=== PATIENT | male | born 1980 | race Caucasian/White ===

== ENCOUNTER 2016-07-30 05:02 | Inpatient (IN) | payer MEDICAID, OTHER ==
[~2016-07-30] VITALS: Ht 152.4 cm; Wt 88.5 kg
[~2016-07-30 05:02] MED LIST: HYDR4TAB26 PO
[2016-07-30 05:05] VITALS: BP_SYST 121
--- NOTE | 2016-07-30 05:05 | NUR ---
Patient to ER bed 8 to gown for evaluation. Side rails up. Report given to James ATWOOD.
--- NOTE | 2016-07-30 05:06 | NUR ---
Pt states he has been having "pain on R upper side of abdomen since earlier this evening". Pt states pain is "sharp with pain scale 8/10", and radiates "to R side chest area". Pt states pain worsened during light palpation of R upper quadrant of abdomen. Pt states having nausea, denies vomiting. Pt states having loose stool earlier this evening. Pt abdomen soft, round, bowel sounds present in all 4 quadrants. Pt denies any other complaints.
[2016-07-30] MEDS ORDERED: NACL 0.9% 1,000 ML IV ONE (05:20)
--- NOTE | 2016-07-30 05:20 | NUR ---
Discussed patient with MD Patel. Verbal orders received and entered, read-back verified.
--- NOTE | 2016-07-30 05:24 | NUR ---
Dr. Patel at bedside for evaluation
[2016-07-30] MEDS ORDERED: HYDROmorphone 1 MG INJ. 1 MG/ML AMPUL IVP ONE ×2 (05:30→07:15)
[2016-07-30] MEDS ORDERED: ONDANSETRON HCL 4 MG/2 ML VIAL IVP ONE (05:30)
[2016-07-30 05:34] LABS: BILIRUBIN,URINE NEGATIVE (NEGATIVE); BLOOD, URINE NEGATIVE (NEGATIVE); CLARITY/URINE CLEAR (CLEAR); COLOR,URINE YELLOW (YELLOW); GLUCOSE,URINE NEGATIVE (NEGATIVE); KETONES,URINE NEGATIVE (NEGATIVE); LEUKOCYTE ESTERASE ,URINE NEGATIVE (NEGATIVE); NITRITE, URINE NEGATIVE (NEGATIVE); PROTEIN URINE NEGATIVE (NEGATIVE); UROBILINOGEN,URINE 0.2 (0.2-1.0)
[2016-07-30 06:00] LABS: BASOPHILS % (AUTO) 0.4 % (0.0-2.0); EOSINOPHILS # (AUTO) 0.1 K/uL (0.0-0.4); EOSINOPHILS % (AUTO) 0.6 % (0.0-4.0); HEMATOCRIT 38.6 % (36-54); HEMOGLOBIN 13.1 g/dL (14.0-18.0); LYMPHOCYTES % (AUTO) 22.3 % (20.5-51.5); MEAN CORPUSCULAR HEMOGLOBIN 31 pg (27-31); MEAN CORPUSCULAR HGB CONC 34 % (32-36); MEAN CORPUSCULAR VOLUME 91 fL (79.0-98.0); MONOCYTES # (AUTO) 0.7 K/uL (0.0-1.0); MONOCYTES % (AUTO) 7.5 % (1.7-9.3); NEUTROPHILS # (AUTO) 6.3 K/uL (1.8-7.7); NEUTROPHILS % (AUTO) 69.2 % (40.0-70.0); PLATELET COUNT (AUTO) 100 K/uL (130-430); RED BLOOD CELL COUNT(AUTO) 4.24 MIL/uL (4.2-6.2); RED CELL DISTRIBUTION WIDTH 13.3 % (9.0-15.0); WHITE BLOOD COUNT (AUTO) 9.1 K/uL (4.8-10.8)
--- NOTE | 2016-07-30 06:00 | NUR ---
Notified by laboratory of critical lab value. Potassium 2.9. ED MD Patel made aware of value.
[2016-07-30 06:08] LABS: CREATININE 0.54 mg/dL (0.55-1.30)
[2016-07-30 06:11] LABS: POTASSIUM 2.9 mmol/L (3.5-5.1)
[2016-07-30 06:14] LABS: INR 1.1 (0.80-1.20); PROTHROMBIN TIME 11.9 SECS (9.5-12.5)
[2016-07-30 06:23] LABS: ALBUMIN 3.5 g/dL (3.4-4.8); TOTAL BILIRUBIN 0.6 mg/dL (0.0-1.0); TOTAL PROTEIN, SERUM 7.6 g/dL (6.4-8.3)
--- NOTE | 2016-07-30 06:28 | NUR ---
IV insertion attempted seven times using aseptic technique each of the seven times, IV insertion unsuccessful each time. Pain medication to be given IM instead of IV per MD order.
[2016-07-30] MEDS ORDERED: POTASSIUM CHLORIDE 20 MEQ in NS 250 ML IV ONE (06:30)
[2016-07-30] MEDS ORDERED: HYDROmorphone 1 MG INJ. 1 MG/ML AMPUL IM ONE (06:30)
--- NOTE | 2016-07-30 06:31 | NUR ---
IM medication unable to scan in eMAR. Pt's name, , allergies verified with pt at bedside. Correct pt, route, time, and dose verified with eMAR at bedside.
[2016-07-30] MEDS ORDERED: DIPHENHYDRAMINE INJ 50 MG/ML VIAL ONE (06:42)
--- NOTE | 2016-07-30 06:46 | NUR ---
Pt stable, no signs of distress noted.
--- NOTE | 2016-07-30 06:55 | NUR ---
# 22 gauge angiocath placed to L forearm by RAI Escudero. Use of asceptic technique. Opsite placed over site. Blood return noted. Flushed with 10 cc of normal saline. No evidence of infiltration noted. Patient tolerated well.
--- NOTE | 2016-07-30 07:10 | NUR ---
Dr. Patel gave verbal order to give KCL 20 mEq in 100 mL over two hours.
--- NOTE | 2016-07-30 07:10 | NUR ---
IVP medication unable to scan in eMAR. Pt's name, , allergies verified with pt at bedside. Correct pt, route, time, and dose verified with eMAR at bedside.
[2016-07-30] MEDS ORDERED: DIPHENHYDRAMINE INJ 50 MG/ML VIAL IVP ONE (07:15)
--- NOTE | 2016-07-30 07:15 | NUR ---
Shift report given and care endorsed to RAI Horan.
[2016-07-30] MEDS ORDERED: KCL 20 mEq in 100 mL (PREMIX) 100 ML IV ONE (07:16)
--- NOTE | 2016-07-30 07:20 | NUR ---
Pt tolerating Medication well. Pt to be medicated for pain.
--- NOTE | 2016-07-30 07:22 | NUR ---
Patient transported to radiology via gurney, accompanied by rad staff.
--- NOTE | 2016-07-30 07:35 | NUR ---
Pt returned from rad tolerated well.
--- NOTE | 2016-07-30 07:50 | NUR ---
Pt tolerated medication well.Will continue to monitor.
[2016-07-30] MEDS ORDERED: INSU100V SQ (07:59)
[2016-07-30] MEDS ORDERED: HYDR4TAB26 PO (07:59)
--- NOTE | 2016-07-30 08:00 | NUR ---
Medication reconciliation completed with information provided by patient. Pt states that he takes a long acting insulin at night but can't remember the name of the medication. Any prior medication reconciliation on file was reviewed and corrected.
--- NOTE | 2016-07-30 08:02 | NUR ---
PT GIVEN URINAL 900ML CLEAR URINE OUTPUT.
--- NOTE | 2016-07-30 08:20 | NUR ---
ADMISSION NOTE Received patient from ER via gurney. Patient admitted with diagnosis of severe hypokalemia. Patient oriented to hospital routine, call light, toileting and safety-patient verbalized understanding.
--- NOTE | 2016-07-30 08:25 | NUR ---
Patient will be admitted to care of . Admitted to TELEMETRY unit. Will go to room 100B. Belongings list completed. Summary report printed. Report will be given at bedside.
[2016-07-30 08:30] VITALS: BP_SYST 129
[2016-07-30] MEDS ORDERED: POTASSIUM CHLORIDE 10 MEQ TAB.PRT.SR PO PRN (08:45)
[2016-07-30] MEDS ORDERED: ZOLPIDEM TARTRATE 5 MG TABLET PO PRN (08:45)
[2016-07-30] MEDS ORDERED: MAGNESIUM SULFATE 50 ML IV PRN (08:45)
[2016-07-30] MEDS ORDERED: DEXTROSE 50% JECT 50 ML DISP.SYRIN IVP PRN (08:45)
[2016-07-30] MEDS ORDERED: MORPHINE 2 MG/ML INJ. SYRINGE IVP PRN (08:45)
[2016-07-30] MEDS ORDERED: DOCUSATE SODIUM 100 MG CAPSULE PO PRN (08:45)
[2016-07-30] MEDS ORDERED: ACETAMINOPHEN 325 MG TABLET PO PRN (08:45)
[2016-07-30] MEDS ORDERED: LORazepam 2 MG/ML VIAL IVP PRN (08:45)
[2016-07-30] MEDS ORDERED: ONDANSETRON HCL 4 MG/2 ML VIAL IVP PRN (08:45)
--- NOTE | 2016-07-30 09:01 | NUR ---
GI CONSULT Spoke with Tania regarding request for consultation with Dr. Fair ([phone]) for reason: chronic pancreatitis.
--- NOTE | 2016-07-30 09:30 | NUR ---
ADMISSION NOTES, SEEN PT IN BED, C/O 09/29 PAIN. WILL MEDICATE. PT IA ALERT AND ORIENTED, NO SOB, NO DISTRESS. IV INFUSING WELL. INSTRUCTED ON THE USE OF CALL LIGHT AND BED CONTROLS, INSTRUCTED TO CALL FOR ASSISTANCE AND PAIN MEDS NEEDED. CALL LIGHT IN REACH, BED IN LOW POSITION. WILL CONT TO MONITOR.
[2016-07-30] MEDS: HYDROmorphone 2 MG/ML VIAL IVP PRN ×4 (09:34→22:16)
[2016-07-30] MEDS: INSULIN ASPART 100 UNITS/ML, 10 ML VIAL (NovoLOG) SUBCUT PRN ×2 (09:45→20:41)
--- NOTE | 2016-07-30 12:00 | NUR ---
Rounding notes, seen pt in bed, c/o 5 pain, pt told that his pain med is due at 1330, no sob, no distress. iv infusing well . call light in reach, bed in low position. reminded about the need for urine sample. collecting bottle at bedside. safety precaution in place. will cont to monitor.
--- NOTE | 2016-07-30 14:00 | NUR ---
Rounding notes, seen pt in bed, sleeping, c/o pain. will medicate. call light in reach, bed in low position. safety precaution in place. will cont to monitor.
[2016-07-30 14:11] VITALS: BP_SYST 135
[2016-07-30 15:46] LABS: BARBITURATE, URINE NEGATIVE (NEG <=200); BENZODIAZEPINE, URINE NEGATIVE (NEG <=150); CANNABINOID, URINE NEGATIVE (NEG <=50); COCAINE, URINE NEGATIVE (NEG <=150); METHAMPHETAMINES SCREEN,URINE NEGATIVE (NEG <=500); OPIATE, URINE POSITIVE (NEG <=100); PHENCYCLIDINE SCREEN,URINE NEGATIVE (NEG <=25); UR TRICYCLIC ANTIDEPRESSANTS NEGATIVE (NEG <=300); URINE AMPHETAMINE NEGATIVE (NEG <=500); URINE METHADONE NEGATIVE (NEG <=200); URINE OXYCODONE SCREEN NEGATIVE (NEG <=100); URINE PROPOXYPHENE SCREEN NEGATIVE (NEG <=300)
--- NOTE | 2016-07-30 16:00 | NUR ---
Rounding notes, seen pt in bed, sleeping, no pain. . call light in reach, bed in low position. safety precaution in place. will cont to monitor.
[2016-07-30 16:20] VITALS: BP_SYST 132
--- NOTE | 2016-07-30 18:00 | NUR ---
Rounding Notes; Pt in bed, eating dinner, c/o pain, level 8/10, will medicate patient. no sob, no distress. call light in reach, bed in low position. safety precaution in place. will cont to monitor.
--- NOTE | 2016-07-30 18:46 | NUR ---
CLOSING Addendum: 07/30/16 at 1854 by Dragan Pastor RN CLOSING NOTES, PT CALLED AND C/O ABOUT EXTREME ITCHING ON HIS IV SITE AFTER HE RECEIVED DILAUDID. PAGED DR GRADY AND NEW ORDERS GIVEN FOR BENADRYL. WILL MEDICATE PATIENT SOON IT IS CLEARED BY PHARMACY. WILL ENDORSE TO LUIS E RN
[2016-07-30] MEDS ORDERED: DIPHENHYDRAMINE HCL 25 MG CAPSULE PO PRN (19:00)
--- NOTE | 2016-07-30 19:45 | NUR ---
Initial Notes Patient alert and oriented, able to make needs known. Patient denies pain at this time. No SOB noted, on room air. Denies nausea/vomiting at this time. IV site patent, flushes well. Patient independent with bed mobility and ambulation. Patient was talking to RN about his benadryl order that it has not really helped with the itchiness he gets when he gets the pain medicine. Patient asked if staff could ask the doctor what his next plan was or if MD was going to visit him tonight. Informed patient, we will call MD and let him know what the doctor says. Goal of pain management, GI stability and safety this shift. Call light within reach. Will continue to monitor.
--- NOTE | 2016-07-30 20:15 | NUR ---
Notes Spoke to on the phone, inquired if MD was going to see patient tonight and any further plans. Per MD he will not be able to visit tonight. Relayed to MD patient was verbalizing possibly going home AMA. MD stated patient is ok to home AMA if he chooses. No new orders received.
[2016-07-30 20:33] VITALS: BP_SYST 117
--- NOTE | 2016-07-30 22:20 | NUR ---
Notes Patient recently medicated with pain medicine. No SOB noted. IV site patent, flushes well. Patient requested for broth and tea, was given. Call light within reach. Will continue to monitor.
--- NOTE | 2016-07-31 00:05 | NUR ---
Notes Patient sleeping at this time. No s/s of pain noted. No SOB noted. IV site patent, flushes well. Call light within reach. Will continue to monitor.
[2016-07-31 01:15] VITALS: BP_SYST 129
[2016-07-31] MEDS: HYDROmorphone 2 MG/ML VIAL IVP PRN (02:23)
--- NOTE | 2016-07-31 02:30 | NUR ---
Notes Patient recently medicated with pain medicine. No SOB noted. IV site patent, flushes well. Call light within reach. Will continue to monitor.
--- NOTE | 2016-07-31 03:45 | NUR ---
AMA Patient stated his was having a panic attack and that he needed to go home. Patient had already at the start of shift verbalized that he was thinking of going home tonight. Per patient, nothing was being done with him and that he did not know what the doctors plan was. MD Dr. Osuna was called and made aware of patients concern and plan and stated earlier this evening that patient is ok to go home against medical advice if he wishes. Patient decided to go home at this time. Charge nurse and dye house helper aware. IV site discontinued, catheter intact. All belongings sent with patient.
== END 2016-07-31 03:45 | disposition left against medical advice (07) | DRG 872 ==
LOC: SED 05:02 → STU 07:52
PROVIDERS: ADMIT General Practice; ATTEND General Practice
DX: A41.9 Sepsis, unspecified organism (principal); K86.1 Other chronic pancreatitis; F11.20 Opioid dependence, uncomplicated; E87.6 Hypokalemia; K30 Functional dyspepsia; E11.9 Type 2 diabetes mellitus without complications; I10 Essential (primary) hypertension; K74.60 Unspecified cirrhosis of liver; Z53.21 Procedure and treatment not carried out due to patient leaving prior to being seen by health care provider; G89.29 Other chronic pain; Z90.49 Acquired absence of other specified parts of digestive tract; Z88.6 Allergy status to analgesic agent; Z88.8 Allergy status to other drugs, medicaments and biological substances; Z79.899 Other long term (current) drug therapy
CPT/HCPCS: 36415; 71010; 80053; 80307; 81003; 82150-TC; 82962; 83690-TC; 85025; 85610-TC; 85730-TC; C1751; J1170; J1200; J1815; J2405; J3480; J7030; J7050; Q0163

== ENCOUNTER 2019-03-05 09:38 | Emergency (ER) | payer OTHER, MEDICAID ==
[~2019-03-05] VITALS: Ht 165.1 cm; Wt 81.6 kg
[2019-03-05 09:38] VITALS: BP_SYST 97
[~2019-03-05 09:38] MED LIST changes: +INSU100V SQ
--- NOTE | 2019-03-05 09:39 | NUR ---
Alana lundykim in ED - 03/05/19 at 0953 by BERTA Patient is awake, alert, and oriented x4. Patient is complaining of abdominal pain, nausea, vomiting, diarrhea, bloody stool x3 days.
--- NOTE | 2019-03-05 09:40 | NUR ---
BROUGHT BACK TO BED #8 AND TRIAGED, REPORT GIVEN TO LELIA
--- NOTE | 2019-03-05 09:41 | NUR ---
Patient is awake, alert, and oriented x4. Patient is complaining of abdominal pain, nausea, vomiting, diarrhea, bloody stool x3 days.
--- NOTE | 2019-03-05 09:41 | NUR ---
Alana crowder in [facility] - 03/05/19 at 0954 by BERTA Report given and care transferred to RAI Arias.
--- NOTE | 2019-03-05 09:55 | NUR ---
ER Dr. Johnson at bedside examining patient.
[2019-03-05] MEDS ORDERED: NACL 0.9% 1,000 ML IV ONE (10:01)
[2019-03-05] MEDS ORDERED: ONDANSETRON HCL 4 MG/2 ML VIAL IVP ONE (10:15)
[2019-03-05 11:14] LABS: BILIRUBIN,URINE NEGATIVE (NEGATIVE); BLOOD, URINE NEGATIVE (NEGATIVE); CLARITY/URINE CLEAR (CLEAR); COLOR,URINE YELLOW (YELLOW); GLUCOSE,URINE 3+ (NEGATIVE); KETONES,URINE 1+ (NEGATIVE); LEUKOCYTE ESTERASE ,URINE NEGATIVE (NEGATIVE); NITRITE, URINE NEGATIVE (NEGATIVE); PROTEIN URINE NEGATIVE (NEGATIVE); UROBILINOGEN,URINE 0.2 (0.2-1.0)
[2019-03-05 11:18] LABS: INR 1.1 (0.80-1.20); PROTHROMBIN TIME 10.7 SECS (9.5-12.5)
[2019-03-05 11:20] LABS: ANION GAP 9 (5-15); CALCIUM 8.6 mg/dL (8.4-11.0); CHLORIDE 98 mmol/L (98-107); CREATININE 0.54 mg/dL (0.55-1.30); POTASSIUM 4.2 mmol/L (3.5-5.1); SODIUM SERUM 128 mmol/L (136-145); UREA NITROGEN, BLOOD 11 mg/dL (8-21)
[2019-03-05 11:22] LABS: GFR AFRICAN AMERICAN 217 mL/min (>90)
[2019-03-05 11:25] LABS: ALANINE AMINOTRANSFERASE 45 U/L (12-78); ALBUMIN 3.2 g/dL (3.4-4.8); ASPARTATE AMINOTRANSFERASE 29 U/L (10-37); LIPASE 40 U/L (73-393); TOTAL BILIRUBIN 0.6 mg/dL (0.0-1.0)
[2019-03-05 11:26] LABS: GLUCOSE 575 mg/dL (70-99)
[2019-03-05 11:30] LABS: BACTERIA,URINE RARE /HPF (None Seen); RBC,URINE 0-3 /HPF (0-3); WBC,URINE 0-3 /HPF (0-3)
[2019-03-05] MEDS ORDERED: INSULIN REGULAR, HUMAN 10 UNITS/0.1 ML INJ SUBCUT ONE (11:30)
[2019-03-05 11:39] LABS: BASOPHILS % (AUTO) 0.6 % (0.0-2.0); EOSINOPHILS % (AUTO) 0.5 % (0.0-4.0); HEMATOCRIT 41.4 % (36-54); HEMOGLOBIN 13.6 g/dL (14.0-18.0); LYMPHOCYTES # (AUTO) 1.4 K/uL (1.0-5.5); LYMPHOCYTES % (AUTO) 31.5 % (20.5-51.5); MEAN CORPUSCULAR HEMOGLOBIN 31 pg (27-31); MEAN CORPUSCULAR HGB CONC 33 % (32-36); MEAN CORPUSCULAR VOLUME 93 fL (79.0-98.0); MONOCYTES # (AUTO) 0.4 K/uL (0.0-1.0); MONOCYTES % (AUTO) 9.1 % (1.7-9.3); NEUTROPHILS # (AUTO) 2.6 K/uL (1.8-7.7); NEUTROPHILS % (AUTO) 58.3 % (40.0-70.0); RED BLOOD CELL COUNT(AUTO) 4.43 MIL/uL (4.2-6.2); RED CELL DISTRIBUTION WIDTH 15.2 % (9.0-15.0); WHITE BLOOD COUNT (AUTO) 4.4 K/uL (4.8-10.8)
[2019-03-05] MEDS ORDERED: INSULIN GLARGINE 100 UNITS/ML 10 ML VIAL SUBCUT ONE (11:45)
[2019-03-05 11:50] LABS: PLATELET COUNT (AUTO) 95 K/uL (130-430)
--- NOTE | 2019-03-05 13:10 | NUR ---
Patient given written and verbal discharge instructions and verbalizes understanding. ER MD discussed with patient the results and treatment provided. Patient in stable condition. ID arm band removed. Rx of cipro given. Patient educated on pain management and to follow up with PMD. Pain Scale 0/10. Opportunity for questions provided and answered. Medication side effect fact sheet provided.
[2019-03-05 13:11] VITALS: BP_SYST 97
== END 2019-03-05 13:11 | disposition home or self-care (01) ==
LOC: SED 09:38
DX: K62.5 Hemorrhage of anus and rectum (principal); R10.9 Unspecified abdominal pain; E11.29 Type 2 diabetes mellitus with other diabetic kidney complication; D64.9 Anemia, unspecified; Z85.07 Personal history of malignant neoplasm of pancreas; Z79.899 Other long term (current) drug therapy; Z88.6 Allergy status to analgesic agent; Z88.8 Allergy status to other drugs, medicaments and biological substances
CPT/HCPCS: 36415; 80053; 81000-TC; 82962; 83690-TC; 84484; 85025; 85610-TC; 96372; 99284; J1815

== ENCOUNTER 2020-01-30 19:37 | Inpatient (IN) | payer OTHER, MEDICAID, SELFPAY ==
[~2020-01-30] VITALS: Ht 165.1 cm; Wt 60.8 kg
[~2020-01-30 19:37] MED LIST changes: +DEXAMETHASONE SOD PHOSPHATE 4 MG/ML VIAL ONE; +DIPHENHYDRAMINE INJ 50 MG/ML VIAL ONE; +GLYCOPYRROLATE 0.2 MG/ML VIAL ONE; +HYDROmorphone 2 MG/ML VIAL ONE; +NEOSTIGMINE METHYLSULFATE 1 MG/ML, 10 ML VIAL ONE; +NS 1000 ML IV.SOLN IV ONE; +NS IRRIG SOLN 1000 ML IR ONE; +ONDANSETRON HCL 4 MG/2 ML VIAL ONE; +PROPOFOL 200MG/ 20ML VIAL (DIPRIVAN) IV ONE; +ROCURONIUM BROMIDE 10 MG/ML (ZEMURON) ONE; +SEVOFLURANE 15 MIN GAS INH ONE; +SUCCINYLCHOLINE CHLORIDE 20 MG/ML(QUELICIN) ONE; +fentaNYL CITRATE/PF 100 MCG/2 ML AMP ONE
[2020-01-30 19:39] VITALS: BP_SYST 128
[2020-01-30] MEDS ORDERED: PIPERACILLIN/TAZO 3.375 GM in NS 50 ML IV ONE (20:30)
[2020-01-30] MEDS ORDERED: VANCOMYCIN HCL 1,000 MG in NS 250 ML IV ONE (20:30)
[2020-01-30] MEDS ORDERED: fentaNYL CITRATE/PF 100 MCG/2 ML AMP IVP ONE (20:30)
[2020-01-30] MEDS ORDERED: NACL 0.9% 1,000 ML IV ONE ×2 (20:30)
--- NOTE | 2020-01-30 21:00 | NUR ---
Patient to ER bed hallway 4 to gown for evaluation. Side rails up.
[2020-01-30 21:08] LABS: BASOPHILS % (AUTO) 0.3 % (0.0-2.0); EOSINOPHILS % (AUTO) 0.1 % (0.0-4.0); HEMATOCRIT 34.2 % (36-54); HEMOGLOBIN 11.5 g/dL (14.0-18.0); LYMPHOCYTES # (AUTO) 0.6 K/uL (1.0-5.5); LYMPHOCYTES % (AUTO) 4.3 % (20.5-51.5); MEAN CORPUSCULAR HEMOGLOBIN 30 pg (27-31); MEAN CORPUSCULAR HGB CONC 34 % (32-36); MEAN CORPUSCULAR VOLUME 89 fL (79.0-98.0); MONOCYTES # (AUTO) 0.9 K/uL (0.0-1.0); MONOCYTES % (AUTO) 6.3 % (1.7-9.3); NEUTROPHILS # (AUTO) 12.2 K/uL (1.8-7.7); PLATELET COUNT (AUTO) 137 K/uL (130-430); RED BLOOD CELL COUNT(AUTO) 3.84 MIL/uL (4.2-6.2); RED CELL DISTRIBUTION WIDTH 14.3 % (9.0-15.0); WHITE BLOOD COUNT (AUTO) 13.7 K/uL (4.8-10.8)
--- NOTE | 2020-01-30 21:10 | NUR ---
Dr. Mcneill bedside for pt eval
--- NOTE | 2020-01-30 21:15 | NUR ---
Pt BIBA to ED with history of diabetes, hernia surgery, pancreatic surgery, liver surgery, inactive dilaudid pump, pancreatitis, non-alcoholic fatty liver, and kidney stone, presents to the ED with gradual onset of abscess associated with pain on the right abdomen for the last 3 days. Pain is severe, localized to the right half of abdomen, worsening with palpation. Patient states possible infection secondary to his insulin shots. No fever, chills, cough, shortness of breath, swelling to the extremities, trauma, or other complaints.
--- NOTE | 2020-01-30 21:30 | NUR ---
Pt taken to Radiology in stable condition
[2020-01-30] MEDS ORDERED: VANCOMYCIN HCL 1000 MG/VIAL IV ONE (21:34)
[2020-01-30] MEDS ORDERED: PIPERACILLIN/TAZOBACTAM 3.375 GM/VIAL (ZOSYN) IV ONE (21:35)
[2020-01-30] MEDS ORDERED: CLINDAMYCIN 900 mg/50mL D5W 50 ML IV ONE (21:45)
--- NOTE | 2020-01-30 21:45 | NUR ---
Pt back from Radiology well tolerated
[2020-01-30 21:49] LABS: CREATININE 0.49 mg/dL (0.55-1.30); POTASSIUM 4.1 mmol/L (3.5-5.1)
[2020-01-30 21:56] LABS: ALBUMIN 2.4 g/dL (3.4-4.8); TOTAL BILIRUBIN 0.9 mg/dL (0.0-1.0)
--- NOTE | 2020-01-30 22:00 | NUR ---
IVF and Antibiotics well tolerated
[2020-01-30 22:22] LABS: INR 1.1 (0.80-1.20); PROTHROMBIN TIME 11.4 SECS (9.5-12.5)
--- NOTE | 2020-01-30 22:37 | NUR ---
Awaiting ADM to Surg Service, then after, to TELE
--- NOTE | 2020-01-30 22:50 | NUR ---
Dr. Maldonado at bedside and explained treatment plan and surgery plan.
[2020-01-30] MEDS ORDERED: ACETAMINOPHEN 325 MG TABLET PO PRN (23:00)
[2020-01-30] MEDS: PIPERACILLIN/TAZO 4.5GM/DEX-IS 100 ML IV SCH (23:00)
--- NOTE | 2020-01-30 23:01 | NUR ---
Blood for labwork drawn from [place]. Patient tolerated well.
--- NOTE | 2020-01-30 23:05 | NUR ---
Patient signed consent for surgery.
--- NOTE | 2020-01-31 | NUR ---
Pt taken to OR in gaurded condition, with Surgical + Anesthesia MDs having been at bedside obtained necessary consents
[2020-01-31] MEDS: HYDROmorphone 1 MG INJ. 1 MG/ML AMPUL IVP PRN ×6 (00:28→20:43)
[2020-01-31] MEDS ORDERED: HYDROmorphone 2 MG/ML VIAL IVP PRN (00:30)
[2020-01-31] MEDS ORDERED: ONDANSETRON HCL 4 MG/2 ML VIAL IVP PRN (00:30)
[2020-01-31] MEDS ORDERED: NACL 0.9% 1,000 ML IV SCH (00:30)
[2020-01-31] MEDS ORDERED: HYDROmorphone 1 MG INJ. 1 MG/ML AMPUL IVP PRN (00:30)
[2020-01-31] MEDS ORDERED: KETOROLAC TROMETHAMINE 30 MG VIAL IVP PRN ×3 (00:30)
[2020-01-31] MEDS ORDERED: HYDROmorphone 2 MG/ML VIAL ONE (01:02)
--- NOTE | 2020-01-31 01:10 | NUR ---
Opening note Received patient from OR. Received report from RAI Simon. Patient is drowsy, yet arousable. He is AOx4, he reports pain is 7/10 and I informed he was just medicated ten minutes ago. Surgical dressing is CDI with minimal pink tinged undertone to white dressing.
[2020-01-31 01:25] VITALS: BP_SYST 94
[2020-01-31] MEDS ORDERED: FLU VACC QS2020-21 (6 mos & up) 0.5 ML/SYRINGE I.M. PRN (01:30)
[2020-01-31] MEDS ORDERED: FLU VACC QS2020-21(65UP)/PF 0.7 ML/SYRINGE I.M. PRN (01:30)
[2020-01-31] MEDS ORDERED: PIPERACILLIN/TAZOBACTAM 4.5 GM/VIAL (ZOSYN) IV ONE (02:08)
[2020-01-31] MEDS ORDERED: KCL 20 mEq in NS 1000 mL 1,000 ML IV ONE (02:08)
[2020-01-31] MEDS: KCL 20 mEq in NS 1000 mL 1,000 ML IV SCH ×4 (02:33→22:52)
--- NOTE | 2020-01-31 02:35 | NUR ---
admit, assessment done, started IVF; no infiltration, tolerating
--- NOTE | 2020-01-31 03:42 | NUR ---
CONSULT REASON FOR CONSULT: NECROTIZING FASCITIS OF ABDOMINAL WALL PERSON I SPOKE WITH: CONSTANTINE CONSULTING PHYSICIAN: DR. ARBOLEDA VAULT SERVICE MECHANIC PHONE NUMBER: [phone] ORDERING PHYSICIAN: DR. SARAVIA
--- NOTE | 2020-01-31 04:42 | NUR ---
ambulate to restroom Patient was assisted with ambulation to restroom. He reports he felt he was going to have a bowel movement, though he didn't. He returned to bed. Bed alarm on and call light w/in reach.
[2020-01-31] MEDS: PIPERACILLIN/TAZO 4.5GM/DEX-IS 100 ML IV SCH ×3 (06:30→22:51)
[2020-01-31] MEDS: INSULIN REGULAR, HUMAN 100 UNITS/ML, 10 ML VIAL (humuLIN R) SUBCUT PRN ×4 (06:39→20:41)
[2020-01-31] MEDS ORDERED: VANCOMYCIN HCL 1,000 MG in NS 250 ML IV ONE (07:00)
--- NOTE | 2020-01-31 07:05 | NUR ---
closing note, dilaudid Patient reporting pain 7/10; dilaudid given for severe pain; Presently stable, no SOB or distress. Antibiotic infusing well, safety precautions maintained., will endorse care.
[2020-01-31 07:55] LABS: BASOPHILS % (AUTO) 0.5 % (0.0-2.0); HEMOGLOBIN 10.3 g/dL (14.0-18.0); LYMPHOCYTES # (AUTO) 0.6 K/uL (1.0-5.5); LYMPHOCYTES % (AUTO) 6.8 % (20.5-51.5); MEAN CORPUSCULAR HEMOGLOBIN 30 pg (27-31); MEAN CORPUSCULAR HGB CONC 33 % (32-36); MEAN CORPUSCULAR VOLUME 90 fL (79.0-98.0); MONOCYTES # (AUTO) 0.3 K/uL (0.0-1.0); MONOCYTES % (AUTO) 3.3 % (1.7-9.3); NEUTROPHILS # (AUTO) 7.9 K/uL (1.8-7.7); NEUTROPHILS % (AUTO) 89.4 % (40.0-70.0); PLATELET COUNT (AUTO) 102 K/uL (130-430); RED BLOOD CELL COUNT(AUTO) 3.45 MIL/uL (4.2-6.2); RED CELL DISTRIBUTION WIDTH 14.4 % (9.0-15.0); WHITE BLOOD COUNT (AUTO) 8.9 K/uL (4.8-10.8)
--- NOTE | 2020-01-31 07:55 | NUR ---
INITIAL NOTE RECEIVED PT IN BED, NO S/S OF DISTRESS OR SOB NOTED, PT HAS NO C/O PAIN AT THIS TIME, PT IN STABLE CONDITION, PT AAOX4, VERBAL, IV CATHETER PATENT, NO SIGNS OF INFECTION OR INFILTRATION NOTED, RUNNING IV FLUIDS ORDERED. BED AT LOWEST POSITION, CALL LIGHT WITHIN REACH, WILL CONTINUE TO MONITOR PT FOR ANY CHANGES, FALL AND SAFETY PRECAUTIONS IN PLACE. DRESSING ON ABD CLEAN AND DRY. PT REFUSED BED ALARM ON, ADVISED PT TO CALL FOR HELP WHEN GETTING UP. Addendum: 01/31/20 at 1200 by Rebeca Hernandez RN EDUCATED PT ON USE OF INCENTIVE SPIROMETER, PT TO USE 10 TIMES AN HOUR WHILE AWAKE, PT VERBALIZED UNDERSTANDING, PT AT 1500ML.
[2020-01-31 08:23] LABS: CALCIUM 8.1 mg/dL (8.4-11.0); CREATININE 0.44 mg/dL (0.55-1.30)
[2020-01-31 08:30] VITALS: BP_SYST 103
[2020-01-31] MEDS ORDERED: ENOXAPARIN SODIUM 40 MG/0.4 ML SYRINGE SUBCUT SCH (09:00)
[2020-01-31] MEDS: VANCOMYCIN HCL 1,000 MG in NS 250 ML IV SCH ×2 (09:49→20:36)
--- NOTE | 2020-01-31 09:52 | NUR ---
Nutrition Update Alireza Scale 17 noted. Pt admitted for necrotizing fascitis. Diet: full liquid BMI: 22.3 kg/m2 RD to follow per nutrition care standards.
--- NOTE | 2020-01-31 10:20 | NUR ---
ROUNDS PT IN BED, NO S/S OF DISTRESS OR SOB NOTED, PT HAS NO C/O PAIN AT THIS TIME, PT IN STABLE CONDITION, PT RESTING COMFORTABLY. WILL CONTINUE TO MONITOR PT FOR ANY CHANGES.
[2020-01-31 12:18] VITALS: BP_SYST 130
--- NOTE | 2020-01-31 14:35 | NUR ---
WOUND EVALUATION: Wound Consult received from Dr. Martinez. Thank you, Dr. Martinez, for the consult. Patient received in a [place] Bed with a mattress, awake, alert, and oriented. Patient is unable to turn independently. Alireza Score is a 17. Past Medical History: Diabetes Mellitus. Patient is status post Incision and Drainage of the abdominal wall abscess with sharp excisional debridement of the necrotizing fasciitis of the abdominal wall in the right upper quadrant on 01/31/[address] Maldonado. Admitted for abdominal wall abscess with infection for a few days. Recent Labs: WBC 8.9 (13.7 on 01/29), RBC 3.45, hemoglobin 10.3, hematocrit 31.0, sodium 131, BUN 10, creatinine 0.44, GFR 226, glucose 327, POC glucose Kos 336, albumin 2.4. Microbiology: Abdominal abscess culture results in progress. Intrinsic factors that delay wound healing: Diabetes Mellitus. Extrinsic factors that delay wound healing: Decreased mobility. Wound Assessment: 1. Central/Right Abdomen: Abscess with infection, present on admission. Site is status post I&D and debridement of abscess and necrotizing fasciitis by Dr. Maldonado on 01/31/2020. Wound bed has 100% dark pink tissue. No odor, moderate dark red sanguineous drainage (not emerald blood) - pressure applied to dressing for five minutes. Undermining present from 9-3 o'clock (0.5 cm at 9 o'clock; 2.0 cm at 12 o'clock; 1.2 cm at 3 o'clock) wound measures 5.5 cm x 9.5 cm x 2.4 cm. Dilaudid infusion pump visible in the abdominal wall (placed in a prior surgery). Recommend follow orders by Dr. Maldonado: Soak wound packing gauze with normal saline. Remove packing from the wound. Irrigate abdominal wall of wound with normal saline. Pack the wound with moist Kerlix gauze. Cover with dry gauze. Cover with ABD pad. Secured with paper tape. Perform site care twice daily, and as needed for dressing soiling or dislodgment. If wound site has continued drainage, apply more gauze, apply pressure to dressing for 10 minutes, then apply more tape and inform surgeon. Also recommend: Encourage and assist patient as needed with repositioning every 2 hours with pillow support and off-load pressure areas with pillows for pressure re-distribution. Offload, elevate and float bilateral heels with pillows. Perform skin care and monitor skin integrity Q shift. Patient observed moving around large nearly full backpack from bed to table. Encouraged patient to ask for help and avoid moving backpack by himself secondary to protect abdominal wound.
[2020-01-31 16:15] VITALS: BP_SYST 95
--- NOTE | 2020-01-31 18:32 | NUR ---
CLOSING NOTE PT IN BED, NO S/S OF DISTRESS OR SOB NOTED, PT HAS NO C/O PAIN AT THIS TIME, PT IN STABLE CONDITION, PT AAOX4, VERBAL, IV CATHETER PATENT, NO SIGNS OF INFECTION OR INFILTRATION NOTED, RUNNING IV FLUIDS ORDERED. BED AT LOWEST POSITION, CALL LIGHT WITHIN REACH, WILL ENDORSE CARE OF PT TO INCOMING NURSE, FALL AND SAFETY PRECAUTIONS IN PLACE. DRESSING ON ABD CLEAN AND DRY. PT REFUSED BED ALARM ON, ADVISED PT TO CALL FOR HELP WHEN GETTING UP.
[2020-01-31 20:40] VITALS: BP_SYST 97
[2020-02-01] VITALS (7 sets, daily range): BP systolic 94–111
[2020-02-01] MEDS: HYDROmorphone 1 MG INJ. 1 MG/ML AMPUL IVP PRN ×6 (00:42→21:53)
[2020-02-01] MEDS: PIPERACILLIN/TAZO 4.5GM/DEX-IS 100 ML IV SCH ×3 (06:06→21:54)
[2020-02-01] MEDS: INSULIN REGULAR, HUMAN 100 UNITS/ML, 10 ML VIAL (humuLIN R) SUBCUT PRN ×4 (06:11→21:56)
--- NOTE | 2020-02-01 07:45 | NUR ---
OPENING NOTES PT AWAKE AND ALERT. NONLABORED BREATHING NOTED ON ROOM AIR. NO ACUTE DISTRESS NOTED. ALL NEEDS MET. CALL LIGHT IN REACH. IV LINE INTACT AND PATENT, NO SIGNS OF INFILTRATION NOTE, FLUIDS RUNNING ORDERED. NO ACUTE DISTRESS NOTED. ALL NEEDS MET. CALL LIGHT IN REACH. FALL AND ASPIRATION PRECAUTIONS IN PLACE. CONTINUE TO MONITOR.
[2020-02-01] MEDS: VANCOMYCIN HCL 1,000 MG in NS 250 ML IV SCH ×2 (08:49→20:17)
--- NOTE | 2020-02-01 09:05 | NUR ---
PT C/O PAIN, CHECKED BP, ADMINISTERED PRN PAIN MEDS ORDERED PER MD, EDUCATION GIVEN, PT VERBALIZED UNDERSTANDING. ADMINISTERED IV ABX ORDERED, TOLERATED WELL. CONTINUE TO MONITOR.
--- NOTE | 2020-02-01 11:59 | NUR ---
accucheck done, administered insulin coverage as ordered per sliding scale, education given, tolerated well. continue to monitor.
--- NOTE | 2020-02-01 13:17 | NUR ---
pt c/o pain, checked bp, administered prn pain meds as ordered per md, education given, tolerated well. continue to monitor.
[2020-02-01] MEDS: KCL 20 mEq in NS 1000 mL 1,000 ML IV SCH (13:51)
--- NOTE | 2020-02-01 13:53 | NUR ---
iv abx and fluids administered as ordered per md, education given, tolerated well. continue to monitor.
--- NOTE | 2020-02-01 17:15 | NUR ---
Dietitian Recommendations * Recommend CCHO diet w/ Yan BID (wound healing supplement provides 180 kcal/day, 5 gm protein/day) SUSAN BERG Please refer to Nutrition Assessment for details. Addendum: 02/01/20 at [address]16 [address] Amended: Links added. Addendum: 02/01/20 at 1719 by Maria G V[address] RD CORRECTION: Dietitian Recommendations * Recommend CCHO, soft (low fiber/bland) diet w/ Yan BID (wound healing supplement provides 180 kcal/day, 5 gm protein/day) SUSAN BERG
--- NOTE | 2020-02-01 17:40 | NUR ---
IV RE-INSERTION: Complaining of pain to IV site. Restarted on RIGHT UPPER ARM 22G BY RAI LOVE. Will observe for any signs of infiltration.
--- NOTE | 2020-02-01 17:43 | NUR ---
pt c/o pain, checked bp, bp wnl limits, administered bp meds as ordered per md, education given, tolerated well. accucheck done, insulin coverage administered per sliding scale. continue to monitor.
--- NOTE | 2020-02-01 19:00 | NUR ---
CLOSING NOTES PT RESTING IN BED, CHEST RISE AND FALL NOTED. NONLABORED BREATHING NOTED ON ROOM AIR. NO ACUTE DISTRESS NOTED. ALL NEEDS MET. CALL LIGHT IN REACH. IV LINE INTACT AND PATENT, NO SIGNS OF INFILTRATION NOTE, FLUIDS RUNNING ORDERED. NO ACUTE DISTRESS NOTED. ALL NEEDS MET. CALL LIGHT IN REACH. FALL AND ASPIRATION PRECAUTIONS IN PLACE. ENDORSED CARE TO RAI CABRERA
--- NOTE | 2020-02-01 19:20 | NUR ---
initial note: initial note: pt is on bed, alert,awake, oriented x 4. complain of pain, not distress, stable vital sign. ivf infusing well. pt has abdominal binder to hold dressing. explain to pt that his pain medication not due yet. pt agree and willing to wait. explain plan of care pt verbalized understanding. call light in reach, side rails up. low bed position. will follow-up.
--- NOTE | 2020-02-01 22:00 | NUR ---
pt is awake, alert. ambulating to the [address], steady gait. no pain, not distress, stable.
--- NOTE | 2020-02-02 | NUR ---
pt is sitting at the edge of bed, stable vital sign, no complain of kelli at this time. no sob, needs attended. call light in reach.
[2020-02-02 00:28] VITALS: BP_SYST 85
--- NOTE | 2020-02-02 02:26 | NUR ---
WOUND CARE NOTE WOUND CARE IS PROVIDED AT THIS TIME, HYGIENE CARE ALSO PROVIDED. PATIENT TOLERATED WELL. CALL LIGHT PLACED WITHIN REACH. BED IS LOCKED, ALARMED, AND AT THE LOWEST
[2020-02-02] MEDS: HYDROmorphone 1 MG INJ. 1 MG/ML AMPUL IVP PRN ×5 (02:32→21:05)
--- NOTE | 2020-02-02 03:58 | NUR ---
NOTE PATIENT IS RESTING IN BED, STABLE, NO PAIN, NO SIGNS OF RESPIRATORY DISTRESS. CALL LIGHT IS WITHIN REACH. BED IS LOCKED, ALARMED, AND AT THE LOWEST LEVEL.
[2020-02-02] MEDS: KCL 20 mEq in NS 1000 mL 1,000 ML IV SCH ×2 (04:30→15:00)
--- NOTE | 2020-02-02 06:00 | NUR ---
NOTE PATIENT IS RESTING IN BED, STABLE, NO SIGNS OF RESPIRATORY DISTRESS. NO PAIN, CALL LIGHT IS WITHIN REACH. BED IS LOCKED, ALARMED, AND AT THE LOWEST LEVEL.
[2020-02-02] MEDS: PIPERACILLIN/TAZO 4.5GM/DEX-IS 100 ML IV SCH ×3 (06:41→21:02)
[2020-02-02] MEDS: INSULIN REGULAR, HUMAN 100 UNITS/ML, 10 ML VIAL (humuLIN R) SUBCUT PRN ×4 (06:46→21:01)
--- NOTE | 2020-02-02 07:19 | NUR ---
closing: pt is resting in bed, stable, no pain, ivf infusing well. needs attended the whole shift, sbar report given to am rn.
--- NOTE | 2020-02-02 07:30 | NUR ---
OPENING NOTES PT AWAKE AND ALERT. NONLABORED BREATHING NOTED ON ROOM AIR. NO ACUTE DISTRESS NOTED. ALL NEEDS MET. CALL LIGHT IN REACH. IV LINE INTACT AND PATENT, NO SIGNS OF INFILTRATION NOTED. DRESSING C/D/I. FALL AND ASPIRATION PRECAUTIONS IN PLACE. CONTINUE TO MONITOR.
[2020-02-02 08:00] VITALS: BP_SYST 111
[2020-02-02 08:53] LABS: CALCIUM 8.2 mg/dL (8.4-11.0); CREATININE 0.41 mg/dL (0.55-1.30); POTASSIUM 4.1 mmol/L (3.5-5.1)
--- NOTE | 2020-02-02 09:00 | NUR ---
SPOKE TO DR. CUMMINGS REGARDING PT'S GENERALIZED EDEMA. MD VERBALIZED UNDERSTANDING, STATED WILL SEE PATIENT. NO NEW ORDERS RECEIVED.
[2020-02-02 09:08] LABS: BASOPHILS % (AUTO) 0.7 % (0.0-2.0); EOSINOPHILS # (AUTO) 0.1 K/uL (0.0-0.4); EOSINOPHILS % (AUTO) 1.5 % (0.0-4.0); HEMATOCRIT 30.6 % (36-54); HEMOGLOBIN 10.2 g/dL (14.0-18.0); LYMPHOCYTES # (AUTO) 1.5 K/uL (1.0-5.5); LYMPHOCYTES % (AUTO) 34.6 % (20.5-51.5); MEAN CORPUSCULAR HEMOGLOBIN 30 pg (27-31); MEAN CORPUSCULAR HGB CONC 33 % (32-36); MEAN CORPUSCULAR VOLUME 91 fL (79.0-98.0); MONOCYTES # (AUTO) 0.3 K/uL (0.0-1.0); MONOCYTES % (AUTO) 7.8 % (1.7-9.3); NEUTROPHILS # (AUTO) 2.4 K/uL (1.8-7.7); NEUTROPHILS % (AUTO) 55.4 % (40.0-70.0); PLATELET COUNT (AUTO) 101 K/uL (130-430); RED BLOOD CELL COUNT(AUTO) 3.38 MIL/uL (4.2-6.2); RED CELL DISTRIBUTION WIDTH 14.7 % (9.0-15.0); WHITE BLOOD COUNT (AUTO) 4.4 K/uL (4.8-10.8)
--- NOTE | 2020-02-02 09:15 | NUR ---
PT REFUSED FLUIDS STATED BECAUSE OF THE EDEMA, EDUCATION GIVEN, PT CONTINUE TO REFUSE. WILL MAKE MD AWARE.
[2020-02-02] MEDS: VANCOMYCIN HCL 1,000 MG in NS 250 ML IV SCH ×2 (09:52→17:28)
[2020-02-02 11:09] VITALS: BP_SYST 138
--- NOTE | 2020-02-02 11:12 | NUR ---
pt c/o pain, checked bp, administered prn pain meds as ordered per md, education given, tolerated well. accucheck done, insulin coverage administered per sliding scale. continue to monitor.
--- NOTE | 2020-02-02 14:12 | NUR ---
iv abx administered as ordered per md, education given, tolerated well. continue to monitor.
[2020-02-02 15:18] VITALS: BP_SYST 105
--- NOTE | 2020-02-02 15:18 | NUR ---
pt c/o pain and preparing to do wound care. administered prn pain meds as ordered per md, education given, tolerated well.
--- NOTE | 2020-02-02 15:47 | NUR ---
wound care done, tolerated well. continue to monitor.
--- NOTE | 2020-02-02 17:36 | NUR ---
iv abx administered as ordered per md, education given, tolerated well. accucheck done, insulin coverage administered per sliding scale, tolerated well. continue to monitor.
--- NOTE | 2020-02-02 18:45 | NUR ---
SEEN BY DR. SARAVIA AT BEDSIDE, RECEIVED ORDERS TO STOP FLUIDS, VERIFIED, AND CARRIED OUT.
--- NOTE | 2020-02-02 18:47 | NUR ---
CLOSING NOTES PT AWAKE AND ALERT. SITTING UP IN BED. NONLABORED BREATHING NOTED ON ROOM AIR, TOLERATING WELL. NO ACUTE DISTRESS NOTED. ALL NEEDS MET. CALL LIGHT IN REACH. IV LINE INTACT AND PATENT, NO SIGNS OF INFILTRATION NOTED. DRESSING C/D/I. WILL ENDORSE TO NOC NURSE.
[2020-02-02 20:50] VITALS: BP_SYST 123
--- NOTE | 2020-02-02 21:05 | NUR ---
ATB/PAIN MGT PATIENT DUE ANTIBIOTIC INFUSED. IV LINE INTACT AND PATENT. MEDICATED WITH DILAUDID FOR C/O UPPER MIDDLE ABDOMINAL PAIN. VITAL SIGNS STABLE. HS SNACK PROVIDED.
[2020-02-03] MEDS: VANCOMYCIN HCL 1,000 MG in NS 250 ML IV SCH ×3 (00:46→18:02)
[2020-02-03 00:51] VITALS: BP_SYST 101
[2020-02-03] MEDS: HYDROmorphone 1 MG INJ. 1 MG/ML AMPUL IVP PRN ×5 (00:58→20:32)
--- NOTE | 2020-02-03 00:58 | NUR ---
PAIN MGT/ATB PATIENT MEDICATED WITH DILAUDID FOR C/O UPPER MIDDLE ABDOMINAL PAIN. VITAL SIGNS STABLE. DUE VANCOMYCIN INFUSING.
--- NOTE | 2020-02-03 03:00 | NUR ---
ROUNDS PATIENT RESTING IN BED. NO DISTRESS NOTED.
[2020-02-03] MEDS: PIPERACILLIN/TAZO 4.5GM/DEX-IS 100 ML IV SCH (05:34)
--- NOTE | 2020-02-03 05:37 | NUR ---
ROUNDS PATIENT RESTING IN BED. BREATHING UNLABORED ON ROOM AIR. DUE ANTIBIOTIC INFUSING.
[2020-02-03] MEDS: INSULIN REGULAR, HUMAN 100 UNITS/ML, 10 ML VIAL (humuLIN R) SUBCUT PRN ×4 (06:21→20:24)
--- NOTE | 2020-02-03 06:25 | NUR ---
PAIN MGT PATIENT PREMEDICATED WITH DILAUDID PRIOR TO WOUND CARE.
--- NOTE | 2020-02-03 06:30 | NUR ---
WOUND CARE WOUND CARE DONE ON PATIENT ABDOMINAL WOUND. WET TO DRY DRESSING APPLIED ORDERED.
--- NOTE | 2020-02-03 08:00 | NUR ---
ASSUMPTION OF CARE: RECEIVED PT ASLEEP, EASILY AROUSED VIA VERBAL STIMULI, DX:PAIN, R/T S/P ABDOMEN ABSCESS DEBRIDEMENT, AFEBRILE, VSS, NO S/S OF DISTRESS, IV SITE INTACT, PATENT, NO REDNESS OR SWELLING, NO C/O PAIN AT THIS TIME, REORIENTED TO UNIT, CALL LIGHT PLACED WITHIN REACH, WILL CONT' TO MONITOR AND ASSESS.
[2020-02-03 08:02] VITALS: BP_SYST 101
--- NOTE | 2020-02-03 09:00 | NUR ---
BILLING SERVICES MANAGER: MORNING MEDS GIVEN, PER ORDERED BY Joesph, TOLERATED WELL, WILL CONT' TO MONITOR AND ASSESS.
[2020-02-03] MEDS: metroNIDAZOLE 500 mg/NS 100 ML IV SCH ×2 (09:54→21:29)
[2020-02-03 11:47] VITALS: BP_SYST 145
--- NOTE | 2020-02-03 12:00 | NUR ---
GLUCOSE MONITORING: BLOOD SUGAR [id number], COVERED WITH 4 UNITS REGULAR INSULIN SQ, TOLERATED WELL, LUNCH MEAL GIVEN AT THIS TIME, WILL CONT' TO MONITOR AND ASSESS.
--- NOTE | 2020-02-03 14:30 | NUR ---
WOUND CARE: DRESSING CHANGE COMPLETED, CLEANSED AREA WITH NS, PAT DRY, APPLIED WET TO DRY DRSG, COVERED WITH ABD DRSG, HELD WITH PAPER TAPE, TOLERATED WELL, WILL CONT' TO MONITOR AND ASSESS.
--- NOTE | 2020-02-03 14:35 | NUR ---
Discharge Planning: DCP faxed pt referral to [facility] (f [phone] p [phone]) DCP to follow up. Addendum: 02/03/20 at 1635 by María Elena DOUGHERTY DCP followed up on pt referral to [facility] (f [phone] p [phone]) pt accepted
--- NOTE | 2020-02-03 15:36 | NUR ---
DC PLANNING Spoke with pt @ bedside & aware & agreeable with plan for dc home with home health. Has no preference for home health. Verified address & ph #s correct on face sheet. States has had abd wound for a long time & he & his sig other Lovella have both done wound care on it in past & are willing to learn wound care. Both are teachable & willing.
--- NOTE | 2020-02-03 17:30 | NUR ---
GLUCOSE MONITORING: BLOOD SUGAR RQGPM=346, COVERED WITH 4 UNITS REGULAR INSULIN SQ, TOLERATED WELL, WILL CONT' TO MONITOR AND ASSESS.
[2020-02-03 17:56] VITALS: BP_SYST 111
--- NOTE | 2020-02-03 18:53 | NUR ---
CLOSING NOTES: PT RESTING IN POSITION OF COMFORT, NEEDS MET, CALL LIGHT WITHIN REACH, NO SIGNIFICANT CHANGES NOTED AT THIS TIME, WILL ENDORSE TO SWITCHBOARD OPERATOR ASSISTANT NURSE.
--- NOTE | 2020-02-03 19:30 | NUR ---
OPENING NOTES RECEIVED REPORT FROM DAY SHIFT RN. PT RESTING IN BED, ALERT & ORIENTED X4. BREATHING EVEN AND UNLABORED TO ROOM AIR. NO SIGNS OF RESPIRATORY DISTRESS NOTED. IV ON RIGHT AC 22G INTACT, SL. NO SIGNS OF INFILTRATION NOTED. CALL LIGHT WITHIN REACH. BED LOCKED IN LOWEST LEVEL. SAFETY PRECAUTIONS IN PLACE. WILL CONTINUE TO MONITOR.
[2020-02-03 20:00] VITALS: BP_SYST 117
--- NOTE | 2020-02-03 20:32 | NUR ---
PAIN/DILAUDID PT REPORTING ABDOMINAL INCISION PAIN. ADMINISTERED DILAUDID ORDERED PRN. DISCUSSED MEDICATION ACTION AND POTENTIAL SIDE EFFECTS. PT VERBALIZED UNDERSTANDING. CALL LIGHT WITHIN REACH. SIDE RAILS UP X3. BED LOCKED IN LOWEST LEVEL. SAFETY PRECAUTIONS MAINTAINED. WILL CONTINUE TO MONITOR.
--- NOTE | 2020-02-03 21:29 | NUR ---
HUNG FLAGYL HUNG FLAGYL ORDERED RATE. NO S/S OF ADVERSE REACTION NOTED. PT TOLERATING WELL. BREATHING EVEN AND UNLABORED TO ROOM AIR. NO S/S OF ACUTE DISTRESS NOTED. CALL LIGHT WITHIN REACH. BED LOCKED IN LOWEST LEVEL. SAFETY PRECAUTIONS IN PLACE. WILL CONTINUE TO MONITOR.
[2020-02-04] VITALS: BP_SYST 132
[2020-02-04] MEDS: VANCOMYCIN HCL 1,000 MG in NS 250 ML IV SCH ×3 (02:24→16:54)
[2020-02-04] MEDS: HYDROmorphone 1 MG INJ. 1 MG/ML AMPUL IVP PRN ×3 (02:33→13:50)
--- NOTE | 2020-02-04 02:33 | NUR ---
DILAUDID/PAIN MEDICATION PT REPORTING ABDOMINAL PAIN. ADMINISTERED DILAUDID ORDERED PRN. DISCUSSED MEDICATION ACTION AND POTENTIAL SIDE EFFECTS. PT VERBALIZED UNDERSTANDING. CALL LIGHT WITHIN REACH. SIDE RAILS UP X3. BED LOCKED IN LOWEST LEVEL. SAFETY PRECAUTIONS MAINTAINED. WILL CONTINUE TO MONITOR.
[2020-02-04] MEDS: INSULIN REGULAR, HUMAN 100 UNITS/ML, 10 ML VIAL (humuLIN R) SUBCUT PRN ×3 (06:08→16:48)
--- NOTE | 2020-02-04 06:58 | NUR ---
CLOSING NOTES PT RESTING IN BED. BREATHING EVEN AND UNLABORED TO ROOM AIR. NO SIGNS OF RESPIRATORY DISTRESS NOTED. IV ON RIGHT AC 22G INTACT, SL. NO SIGNS OF INFILTRATION NOTED. CALL LIGHT WITHIN REACH. BED LOCKED IN LOWEST LEVEL. SAFETY PRECAUTIONS IN PLACE. ALL NEEDS ARE MET THROUGHOUT SHIFT. WILL CONTINUE TO MONITOR UNTIL ENDORSE TO DAY SHIFT RN.
--- NOTE | 2020-02-04 07:35 | NUR ---
OPENING NOTES: RECEIVED REPORT FROM SLITTING AND SHIPPING SUPERVISOR NURSE. PATIENT IS AWAKE, ALERT X4 RESTING IN BED. PATIENT IS TOLERATING OXYGEN ON ROOM AIR WITH NO SIGNS OF RESPIRATORY DISTRESS OR SHORTNESS OF BREATH NOTED. IV LINE PATENT AND INTACT WITH NO SIGNS OF INFILTRATION NOTED. SAFETY, FALL, AND ASPIRATION PRECAUTION ARE IN PLACE. BED LOCKED IN LOWEST POSITION WITH CALL LIGHT IN REACH. WILL CONTINUE TO MONITOR PATIENT FOR ANY CHANGES.
[2020-02-04 08:01] VITALS: BP_SYST 101
--- NOTE | 2020-02-04 08:05 | NUR ---
RN ROUNDS: PATIENT IS AWAKE, ALERT X4 LAYING DOWN IN BED. PATIENT TOLERATING OXYGEN ON ROOM AIR WITH NO SIGNS OF DISTRESS OR SHORTNESS OF BREATH NOTED. DENIES ANY PAIN AT THE MOMENT. IV LINE PATENT AND INTACT WITH NO SIGNS OF INFILTRATION NOTED. PATIENT IN STABLE CONDITION. WILL CONTINUE TO MONITOR PATIENT FOR ANY CHANGES.
--- NOTE | 2020-02-04 10:20 | NUR ---
RN ROUNDS: PATIENT IS AWAKE AND ALERT x4 SITTING AT THE EDGE OF THE BED. PATIENT DENIES ANY PAIN AT THE MOMENT. PATIENT IS TOLERATING OXYGEN ON ROOM AIR WITH NO SIGNS OF DISTRESS OR SHORTNESS OF BREATH NOTED. IV SITE IS PATENT WITH NO SIGNS OF INFILTRATION NOTED. PATIENT IN STABLE CONDITION. WILL CONTINUE TO MONITOR PATIENT FOR ANY CHANGES.
[2020-02-04] MEDS: metroNIDAZOLE 500 mg/NS 100 ML IV SCH (10:25)
--- NOTE | 2020-02-04 12:29 | NUR ---
RN ROUNDS: PATIENT IS AWAKE AND ALERT x4 LAYING DOWN IN BED. PATIENT IS TOLERATING OXYGEN ON ROOM AIR WITH NO SIGNS OF DISTRESS OR SHORTNESS OF BREATH NOTED. IV SITE IS PATENT WITH NO SIGNS OF INFILTRATION NOTED. PATIENT IN STABLE CONDITION. WILL CONTINUE TO MONITOR PATIENT FOR ANY CHANGES.
--- NOTE | 2020-02-04 13:05 | NUR ---
Discharge Planning: DCP faxed pt referral to [facility] (f [phone] p [phone]) per doctor request. [facility] (f [phone] p [phone]) accepted pt. Addendum: 02/04/20 at 1545 by María Elena DOUGHERTY DCP followed up wt Amberly at [facility] (f [phone] p [phone]) accepted pt, DCP made CM aware and canceled [facility] (f [phone] p [phone]).
--- NOTE | 2020-02-04 14:00 | NUR ---
PAGED MD: PAGED DR. BALDWIN AT . AWAITING CALL BACK.
[2020-02-04 14:01] VITALS: BP_SYST 119
--- NOTE | 2020-02-04 14:47 | NUR ---
RN ROUNDS: PATIENT IS AWAKE AND ALERT x4 WALKING AROUND THE ROOM. INFORMED PATIENT I PAGED DR. BALDWIN TO SEE IF HE CAN GO HOME. PATIENT IS ANXIOUS TO LEAVE. IV SITE IS PATENT WITH NO SIGNS OF INFILTRATION NOTED. PATIENT IS TOLERATING OXYGEN ON ROOM AIR WITH NO SIGNS OF DISTRESS OR SHORTNESS OF BREATH NOTED. PATIENT IN STABLE CONDITION. WILL CONTINUE TO MONITOR PATIENT FOR ANY CHANGES.
--- NOTE | 2020-02-04 15:00 | NUR ---
SECOND PAGE TO : PAGED DR. BALDWIN AT . SPOKE WITH LIIVA. AWAITING CALL BACK. Addendum: 02/04/20 at 1527 by Shaniqua Montes RN CALLED BACK. DR. BALDWIN CLEARED PATIENT FOR DISCHARGE TO GO HOME ON PO ANTIBIOTICS: LEVAQUIN 500MG DAILY FOR 10 DAYS AND FLAGYL 500MG BID FOR 10 DAYS.
--- NOTE | 2020-02-04 15:07 | NUR ---
DC PLANNING Earlier this afternoon called & spoke with Dr Martinez regarding dc plan. States ok to dc home with home health if cleared by Dr Silva, gave ph order. States prefers to use [facility] or [facility] if pt agreeable. Per María Elena, dc automatic data processing planner, accepted by [facility]. Spoke with pt @ bedside & informed of [facility], states he is ok with [facility], had no preference. Gave pt ph to [facility]. Pt aware to take extra dsg supplies home. Pt's nurse aware of dc plan & is calling Dr Silva for clearance.
[2020-02-04] MEDS ORDERED: LEVO750T45 PO (15:19)
[2020-02-04] MEDS ORDERED: METR500T PO (15:19)
[2020-02-04 15:38] VITALS: BP_SYST 119
--- NOTE | 2020-02-04 17:00 | NUR ---
WOUND CARE: WOUND CARE PERFORMED AT THIS TIME. PATIENT TOLERATED IT WELL. PICTURE TAKEN FOR DISCHARGE. WILL CONTINUE TO MONITOR PATIENT.
--- NOTE | 2020-02-04 19:00 | NUR ---
D/C Patient: Patient given medication reconciliation form and D/C instructions. Exit Care provided. Patient verbalized understanding. MD discussed with patient the results and treatment provided. Ambulatory with steady gait for discharge to home. Patient in stable condition, ID band removed. IV catheter removed, intact and dressing applied, no active bleeding. Wound dressing in place. Patient educated on pain management and follow up instructions regarding appointments and medications. All belongings sent with patient. Addendum: 02/04/20 at 1908 by Shaniqua Montes RN Patient given home health information for [facility] .
== END 2020-02-04 19:00 | disposition home health service (06) | DRG 907 ==
LOC: SED 19:37 → STU 22:11 → SMU 01-31
PROVIDERS: ADMIT Family Medicine; ATTEND Family Medicine
PROC: 0KBK0ZZ Excision of Right Abdomen Muscle, Open Approach (ICD-10-PCS; principal; 2020-01-31)
DX: T85.79XA Infection and inflammatory reaction due to other internal prosthetic devices, implants and grafts, initial encounter (principal); M72.6 Necrotizing fasciitis; E43 Unspecified severe protein-calorie malnutrition; E87.1 Hypo-osmolality and hyponatremia; L02.211 Cutaneous abscess of abdominal wall; E11.9 Type 2 diabetes mellitus without complications; Y83.1 Surgical operation with implant of artificial internal device as the cause of abnormal reaction of the patient, or of later complication, without mention of misadventure at the time of the procedure; Z20.828 Contact with and (suspected) exposure to other viral communicable diseases; G89.4 Chronic pain syndrome; Z88.5 Allergy status to narcotic agent; Z88.8 Allergy status to other drugs, medicaments and biological substances; Z68.22 Body mass index [BMI] 22.0-22.9, adult; Z79.899 Other long term (current) drug therapy; Y92.89 Other specified places as the place of occurrence of the external cause
CPT/HCPCS: 36415; 76376; 80048; 80053; 80202-TC; 82962; 83605; 83735-TC; 85025; 85610-TC; 86140; 86886; 86900; 86901; 87070; 87070-TC; 87075-TC; 87186-TC; 87205-TC; 96365; 96366; 96368; 99291; G0378; J0330; J0696; J1100; J1170; J1200; J1815; J2405; J2543; J2704; J2710; J3010; J3370; J3480; J3490; J7030; J7050; J7060; Q9967

== ENCOUNTER 2020-08-22 21:10 | Emergency (ER) | payer OTHER, MEDICAID ==
[~2020-08-22] VITALS: Ht 165.1 cm; Wt 59.0 kg
[~2020-08-22 21:10] MED LIST changes: -DEXAMETHASONE SOD PHOSPHATE 4 MG/ML VIAL ONE; -DIPHENHYDRAMINE INJ 50 MG/ML VIAL ONE; -GLYCOPYRROLATE 0.2 MG/ML VIAL ONE; -HYDROmorphone 2 MG/ML VIAL ONE; +LEVO750T45 PO; -NEOSTIGMINE METHYLSULFATE 1 MG/ML, 10 ML VIAL ONE; -NS 1000 ML IV.SOLN IV ONE; -NS IRRIG SOLN 1000 ML IR ONE; -ONDANSETRON HCL 4 MG/2 ML VIAL ONE; -PROPOFOL 200MG/ 20ML VIAL (DIPRIVAN) IV ONE; -ROCURONIUM BROMIDE 10 MG/ML (ZEMURON) ONE; -SEVOFLURANE 15 MIN GAS INH ONE; -SUCCINYLCHOLINE CHLORIDE 20 MG/ML(QUELICIN) ONE; -fentaNYL CITRATE/PF 100 MCG/2 ML AMP ONE
[2020-08-22 21:17] VITALS: BP_SYST 149
--- NOTE | 2020-08-22 21:21 | NUR ---
Patient to ER bed 07 to gown for evaluation. Side rails up.
--- NOTE | 2020-08-22 22:00 | NUR ---
Pt BIBA to ED with history of chronic abdominal pain, IDDM brought to the emergency department by ambulance with a chief complaint of 24-hour history of worsening 10 out of 10 sharp right upper quadrant pain that radiates to his back. Patient reports that he has had pancreatitis in the past and the pain is similar to those episodes. Patient denies nausea, vomiting, fevers but reports occasional chills. Patient notes chronic abdominal pain having an indwelling infusion pump for pain management that was removed. Patient states he is waiting for a new pump to be placed
--- NOTE | 2020-08-22 22:15 | NUR ---
# 20 gauge angiocath placed to right medial forearm. Use of asceptic technique. Opsite placed over site. Blood return noted. Blood for lab drawn from site. Flushed with 10 cc of normal saline. No evidence of infiltration noted. Patient tolerated well.
[2020-08-22] MEDS ORDERED: NACL 0.9% 1,000 ML IV ONE ×2 (22:30→22:45)
[2020-08-22 22:39] LABS: BASOPHILS % (AUTO) 0.6 % (0.0-2.0); EOSINOPHILS % (AUTO) 0.3 % (0.0-4.0); HEMOGLOBIN 13.9 g/dL (14.0-18.0); LYMPHOCYTES % (AUTO) 23.7 % (20.5-51.5); MEAN CORPUSCULAR HEMOGLOBIN 29 pg (27-31); MEAN CORPUSCULAR HGB CONC 34 % (32-36); MEAN CORPUSCULAR VOLUME 87 fL (79.0-98.0); MONOCYTES # (AUTO) 0.8 K/uL (0.0-1.0); MONOCYTES % (AUTO) 9.7 % (1.7-9.3); NEUTROPHILS # (AUTO) 5.5 K/uL (1.8-7.7); NEUTROPHILS % (AUTO) 65.7 % (40.0-70.0); PLATELET COUNT (AUTO) 259 K/uL (130-430); RED BLOOD CELL COUNT(AUTO) 4.73 MIL/uL (4.2-6.2); RED CELL DISTRIBUTION WIDTH 14.4 % (9.0-15.0); WHITE BLOOD COUNT (AUTO) 8.4 K/uL (4.8-10.8)
[2020-08-22 22:45] LABS: CALCIUM 8.8 mg/dL (8.4-11.0); CREATININE 0.9 mg/dL (0.55-1.30); POTASSIUM 4.1 mmol/L (3.5-5.1)
[2020-08-22] MEDS ORDERED: LORazepam 2 MG/ML VIAL IVP ONE (22:45)
[2020-08-22] MEDS ORDERED: fentaNYL CITRATE/PF 100 MCG/2 ML AMP IVP ONE (22:45)
[2020-08-22 22:51] LABS: ALBUMIN 3.2 g/dL (3.4-4.8); TOTAL BILIRUBIN 0.7 mg/dL (0.0-1.0)
--- NOTE | 2020-08-22 23:00 | NUR ---
Medicated w/ Ativan and Fentanyl ivp per MD orders. IVF infusing with no s/s of infiltration at this time. Will cont to monitor and will observe for any adverse reaction. Patient resting quietly. No acute distress noted. Vital signs within normal range. Bed to low position sr up, continue to monitor.
[2020-08-22 23:36] LABS: BILIRUBIN,URINE NEGATIVE (NEGATIVE); BLOOD, URINE NEGATIVE (NEGATIVE); CLARITY/URINE CLEAR (CLEAR); COLOR,URINE YELLOW (YELLOW); GLUCOSE,URINE 3+ (NEGATIVE); KETONES,URINE 1+ (NEGATIVE); LEUKOCYTE ESTERASE ,URINE NEGATIVE (NEGATIVE); NITRITE, URINE NEGATIVE (NEGATIVE); PH,URINE 6.5 (5.0-8.0); PROTEIN URINE NEGATIVE (NEGATIVE); UROBILINOGEN,URINE 0.2 (0.2-1.0)
--- NOTE | 2020-08-23 00:05 | NUR ---
Pt remains in stable condition, VSS no s/s of acute distress Resting on gurney rails up
--- NOTE | 2020-08-23 00:54 | NUR ---
Dr. Ram aware pt has been asking for more n more pain meds
[2020-08-23] MEDS ORDERED: fentaNYL CITRATE/PF 100 MCG/2 ML AMP ONE (01:15)
[2020-08-23] MEDS ORDERED: TRAM50TA PO (01:50)
[2020-08-23 02:10] VITALS: BP_SYST 149
--- NOTE | 2020-08-23 02:10 | NUR ---
Patient given written and verbal discharge instructions and verbalizes understanding. ER MD discussed with patient the results and treatment provided. Patient in stable condition. ID arm band removed. IV catheter removed intact and dressing applied, no active bleeding. Rx of Tramadol given. Patient educated on pain management and to follow up with PMD. Pain Scale 0/10 Opportunity for questions provided and answered. Medication side effect fact sheet provided.
== END 2020-08-23 02:10 | disposition home or self-care (01) ==
LOC: SED 21:10
DX: G89.29 Other chronic pain (principal); R10.11 Right upper quadrant pain; F11.20 Opioid dependence, uncomplicated; E11.9 Type 2 diabetes mellitus without complications; Z79.899 Other long term (current) drug therapy
CPT/HCPCS: 36415; 80053; 81003; 82962; 83690; 85025; 96361; 96374; 96375; 99284; J2060; J3010 ×2; J7030